=== PATIENT | male | born 1960 | race Caucasian/White ===

== ENCOUNTER 2020-10-14 21:44 | Emergency (ER) | payer OTHER, SELFPAY ==
[2020-10-14] VITALS (15 sets, daily range): BP systolic 118–144; BP diastolic 78–85; PULSE 64–92; RESP 10–23; TEMP 36.4; O2SAT 95–100
--- NOTE | ~2020-10-14 | CT_ITS ---
EXAMINATION: CT pelvis w con DATE: 10/14/2020 23:09 INDICATION: Fall. Right buttock pain. Evaluate for hematoma. TECHNIQUE: Computed tomography (CT) of the pelvis was performed without intravenous contrast. Automat ed exposure control and iterative reconstruction technique were employed. Exam dose: 496.74 mGy-cm t otal exam DLP. COMPARISON: None FINDINGS: 1.5 cm exophytic lower pole right renal cyst. Normal appendix. Diverticulosis of the left colon; no CT evidence of diverticulitis. Normal caliber of the distal abdominal aorta. No intraperitoneal or retroperitoneal or lower abdomina l or pelvic mass lesion or adenopathy or ascites. There is extensive soft tissue stranding within the subcutaneous adipose tissues of the right flank, lower back and right buttock area, consistent with history of probable hematoma. No pelvic fracture or bone destruction. There is severe degenerative disc disease at L3-4, moderate degenerative disc disease at L4-5 and L5- S1. There is associated 5.7 mm retrolisthesis at L3-4. IMPRESSION: Subcutaneous fat stranding in the right flank, lower back and buttock area, likely due t o hematoma No pelvic fracture 1.5 cm right renal cyst Diverticulosis of left colon Reviewed, dictated and finalized at [facility] Reviewed, dictated and finalized at [facility] IMPRESSION: Subcutaneous fat stranding in the right flank, lower back and butt ock area, likely due to hematoma No pelvic fracture 1.5 cm right renal cyst Diverticulosis of left colon
[2020-10-14 21:52] LABS: Glucose Point of Care 146 (65-105)
--- NOTE | 2020-10-14 22:02 | PC.NURSE ---
patient here after fall. brought to ED by EMS. see initial notes. 2nd SL inserted and labs drawn. 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 EKG done due to cardiac hx. patient on brillinta and ASA at home. has moderate sized bruise and hematoma to right flank where he hit the brick fireplace. EMS and patient both deny known head injury or LOC. no other wounds seen. no deformities noted.
--- NOTE | 2020-10-14 22:02 | ECG_ITS ---
Measurements Intervals [place] Rate: 75 P: 68 [place]: 151 QRS: 53 QRSD: 101 T: 75 QT: 379 QTc: 424 Interpretive Statements SINUS RHYTHM POSSIBLE LEFT ATRIAL ENLARGEMENT BORDERLINE ECG Electronically Signed On 10-15-2020 6:28:54 EXCEL DEVELOPER by Fran Morales D.O.
--- NOTE | 2020-10-14 22:22 | ED.GENADULT ---
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 He states that he felt he was almost going to pass out, but he did not actually pass out. He also fell 3 hours ago and hit his right back/buttock on the mantle of a fireplace. He denies hitting his head. He was able to get up and walk after the fall. He then went to dinner and got light headed afterwards. Related Data Home Medications Medication Instructions Recorded Confirmed carvedilol 6.25 mg BID 10/14/20 lisinopril 30 mg DAILY 10/14/20 rosuvastatin 10 mg HS 10/14/20 ticagrelor [Brilinta] 90 mg DAILY 10/14/20 Allergies Allergy/AdvReac Type Severity Reaction Status Date / Time bee pollen Allergy Anaphylaxis Verified 10/14/20 23:30 Review of Systems Constitutional: Constitutional: Reports as per HPI, Denies chills, Reports excessive sweating, Denies fever(s), Denies headache(s) and Denies weakness Eyes: Eyes: Denies blurry vision ENT: Denies headache(s) and Denies neck pain Cardiovascular: Cardiovascular: Denies chest pain and Denies dyspnea Respiratory: Respiratory: Denies cough and Denies dyspnea Gastrointestinal: Gastrointestinal: Denies abdominal pain, Denies diarrhea, Denies nausea and Denies vomiting Genitourinary: Genitourinary: Denies hematuria and Denies dysuria Musculoskeletal: Musculoskeletal: Reports back pain and Denies neck pain Neurologic: Reports dizziness, Denies headache(s) and Denies weakness [facility] Family History Family History Father Hypertension Social History Social History Smoking status: Never smoker Second hand tobacco smoke exposure: No Alcohol intake: current Exam Const: General: no acute distress and well developed Orientation/consciousness: oriented to person, oriented to place, oriented to time and patient oriented x3 HENMT: Head: normocephalic Ears: external ears normal General nose exam: Normal external nose present Eyes: General: appearance normal, both eyes and all related structures Conjunctivae: conjunctivae normal Neck: Neck: normal visual inspection and full ROM Chest: Chest palpation & inspection: normal inspection of the chest and no tenderness Resp: Effort & Inspection: normal respiratory effort Auscultation: clear to auscultation bilaterally Cardio: Rate: regular rate Rhythm: regular rhythm GI: GI Palp: No abdominal tenderness and Yes Soft to palpation Skin: General skin exam: normal color and turgor normal Trauma: other (bruise right back) Neuro: General: oriented to person, oriented to place, oriented to time and patient oriented x3 Cognition (Neuro): normal cognition Extrem: General: normal to inspection, full ROM and no pedal edema Psych: Appearance: grossly normal Mental Status: mental status grossly normal Affect: normal affect Course Vital Signs Vital signs: Vital Signs Pulse Rate 72 10/14/20 21:46 Respiratory Rate 19 10/14/20 21:46 Pulse Oximetry 100 10/14/20 21:46 Temperature 36.4 C 10/14/20 21:57 Pulse Rate 64 10/14/20 23:32 Respiratory Rate 10 L 10/14/20 23:32 Blood Pressure 144/85 H 10/14/20 23:11 Pulse Oximetry 95 10/14/20 23:32 Medical Decision Making Vital Signs Vital Signs: Vital Signs Pulse Rate 72 10/14/20 21:46 Respiratory Rate 19 10/14/20 21:46 Pulse Oximetry 100 10/14/20 21:46 Temperature 36.4 C 10/14/20 21:57 Pulse Rate 64 10/14/20 23:32 Respiratory Rate 10 L 10/14/20 23:32 Blood Pressure 144/85 H 10/14/20 23:11 Pulse Oximetry 95 10/14/20 23:32 Lab Data Result diagrams: 10/14/20 22:15 10/14/20 22:15 Labs: Lab Results 10/14/20 10/14/2009/20
[2020-10-14 22:25] LABS: Basophils Percent Auto 0.2 % (0.2-1.2); Eosinophils Absolute Auto 0.1 K/mm3 (0-0.3); Eosinophils Percent Auto 1.7 % (0-4.4); Hematocrit 42.7 % (42.0-52.0); Hemoglobin 14.8 g/dL (14.0-18.0); Lymphocytes Absolute Auto 1.52 K/mm3 (0.9-3.2); Lymphocytes Percent Auto 25.1 % (18.3-44.2); Mean Corpuscular HGB Conc 34.7 g/dl (32-36); Mean Corpuscular Hemoglobin 32.2 pg (26-34); Mean Corpuscular Volume 92.8 fl (80-100); Mean Platelet Volume 11.3 fl (7.4-10.4); Monocytes Absolute Auto 0.5 K/mm3 (0.1-0.6); Monocytes Percent Auto 8.4 % (2.6-8.5); Neutrophils Absolute Auto 3.9 K/mm3 (1.3-6.7); Neutrophils Percent Auto 64.6 % (45.5-73.1); Platelet Count Result 159 k/mm3 (150-375); Red Cell Distribution Width 11.5 % (11.5-14.5); White Blood Count 6.1 K/mm3 (4.5-10.0)
--- NOTE | 2020-10-14 22:25 | PC.NURSE ---
patient's here. updated on current treatment plan.
[2020-10-14 22:35] LABS: Alanine Aminotransferase 35 U/L (4-50); Albumin Level 4.3 g/dL (3.5-5.1); Alkaline Phosphatase 46 U/L (38-126); Anion Gap 9 mmol/L (8-16); Aspartate Amino Transferase 36 U/L (17-59); Bilirubin,Total 0.7 mg/dL (0.2-1.3); Blood Urea Nitrogen 15 mg/dL (9-20); Calcium 8.9 mg/dL (8.4-10.2); Carbon Dioxide 27 mmol/L (22-30); Chloride 100 mmol/L (98-107); Estimated CRCL calculation 86 ml/min; Estimated Glomerular Filt Rate > 60; Glucose 132 mg/dL (75-110); Potassium 3.6 mmol/L (3.4-5.0); Sodium 136 mmol/L (137-145)
--- NOTE | 2020-10-14 22:48 | PC.NURSE ---
patient with call light on. wants pain med. provider aware. orders placed.
[2020-10-14 22:51] LABS: Add Urine Microscopic? YES; Appearance Urine Clear (Clear); Bilirubin Urine Negative (Negative); Blood Urine Negative (Negative); Color Urine Yellow (Yellow); Glucose Urine UA Negative (Negative); Ketones Urine Trace mg/dL (Negative); Leukocyte Esterase Ur Negative LEU/UL (Negative); Mucus Urine Heavy /lpf; Nitrate Urine Negative (Negative); Protein Urine 1+ mg/dL (Negative); RBC Urine 0-2 /hpf (0-2); Specific Grav Ur 1.029 (1.001-1.035); Squamous Epithelial Cell Urine Rare /hpf (Few); WBC Urine 0-3 /hpf
[2020-10-14] MEDS: MORPHINE SULFATE (*CRX) 4 MG/ML INJ IV PUSH (22:53)
[2020-10-14] MEDS: ONDANSETRON INJ 4 MG/2 ML VIAL IV PUSH (22:53)
--- NOTE | 2020-10-14 22:53 | PC.NURSE ---
patient medicated as ordered. taken to CT via data reduction technician and stretcher.
--- NOTE | 2020-10-14 23:20 | PC.NURSE ---
patient back from CT. on night monitor. ice bag to right flank. waiting for CT results and disposition. in room.
== END 2020-10-14 23:53 | disposition home or self-care (01) ==
PROVIDERS: Emergency Provider Emergency Medicine; PCP Family Medicine
DX: R42 Dizziness and giddiness (principal); S30.0XXA Contusion of lower back and pelvis, initial encounter; W01.198A Fall on same level from slipping, tripping and stumbling with subsequent striking against other object, initial encounter; R94.31 Abnormal electrocardiogram [ECG] [EKG]
CPT/HCPCS: 36415; 72193; 80053; 81001; 85025; 93005; 96374; 96375; 99284; J2270; J2405; Q9967

== ENCOUNTER 2020-12-02 10:25 | Outpatient (CLI) | payer OTHER, SELFPAY | END 2020-12-02 10:26 | disposition home or self-care (01) | LOC: ANHCOVIDVC 10:26 | PROVIDERS: PCP Family Medicine | DX: Z23 Encounter for immunization (principal) | CPT/HCPCS: 0001A; 91300 ==

== ENCOUNTER 2020-12-23 10:35 | Outpatient (CLI) | payer OTHER, SELFPAY | END 2020-12-23 10:36 | disposition home or self-care (01) | LOC: ANHCOVIDVC 10:35 | PROVIDERS: PCP Family Medicine | DX: Z23 Encounter for immunization (principal) | CPT/HCPCS: 0002A; 91300 ==

== ENCOUNTER 2023-10-06 20:40 | Emergency (ER) | payer BC, SELFPAY ==
--- NOTE | 2023-10-06 20:37 | ECG_ITS ---
Measurements Intervals [place] Rate: 65 P: 58 [place]: 160 QRS: 31 QRSD: 98 T: 71 QT: 398 QTc: 414 Interpretive Statements SINUS RHYTHM RSR' IN V1 OR V2, PROBABLY NORMAL VARIANT DELAYED PRECORDIAL R/S TRANSITION BORDERLINE ECG COMPARED TO ECG 10/14/2020 22:12:19 NO SIGNIFICANT CHANGES Electronically Signed On 10-08-2023 7:58:13 ASSOCIATE PROFESSOR OF [employer]RARY [employer]IA by Fran Morales D.O.
[2023-10-06 20:38] VITALS: BP 128/76; PULSE 70; RESP 18; TEMP 36.3; O2SAT 98
--- NOTE | 2023-10-06 21:35 | ED.DIZZY ---
HPI - Dizziness General Chief Complaint: Dizziness Stated Complaint: DIZZY and nausea Time Seen by Provider: 10/06/23 21:19 Source: patient and family Limitations: no limitations History of Present Illness HPI Narrative: Patient is a 63-year-old male presents to the emergency department accompanied by his for dizziness. Patient notes around 7 or 730 he was reading the newspaper and started to feel slightly dizzy and then when he laid back he got extremely dizzy. Patient notes that when he is resting goes away but with these certain movements it seems to come right back on the patient denies history this the past. Patient denies recent injuries, recent illness, chest pain, difficulty breathing, numbness, weakness, paresthesias, vision changes, difficulty swallowing, dysphonia, confusion, Ear pain, hearing changes, nasal congestion. Patient notes that he has been in his normal state health preceding this dizziness. Patient denies any dizziness currently well arrest but fears moving as this is what has been precipitating it. Related Data Home Medications Medication Instructions Recorded Confirmed carvedilol 6.25 mg tablet 6.25 mg BID 10/14/20 02/22/23 lisinopril 30 mg tablet 30 mg DAILY 10/14/20 02/22/23 aspirin 81 mg tablet,delayed 81 mg PO DAILY 08/04/21 02/22/23 release (Adult Low Dose Aspirin) dutasteride 0.5 mg capsule 0.5 mg PO DAILY 02/22/23 02/22/23 Allergies Allergy/AdvReac Type Severity Reaction Status Date / Time bee pollen Allergy Anaphylaxis Verified 10/06/23 20:38 Review of Systems Review of Systems: A 10 system review of systems was completed on the patient and is negative except for what is stated in the HPI. Nursing and ancillary documentation was reviewed. [facility] Past Medical History Medical History CAD in [place] artery CHF (congestive heart failure) Chronic back pain Dyslipidemia, goal LDL below 100 Environmental allergies Essential (primary) hypertension Prediabetes Vitamin D deficiency Surgical History Surgical History History of carpal tunnel release 2005 - b/l History of coronary artery stent placement 2016 Family History Family History Father Hypertension Renal failure Mother Heart disease Memory change Social History Social History Smoking status: Never smoker Second hand tobacco smoke exposure: No Alcohol intake: current Substance use: never Substance use type: does not use Living arrangements: with family Additional living arrangements comments: and son Occupation/Education: occupation Gender identity (if verbalized by the patient): Male Sexual Orientation (if Verbalized by the Patient): Straight or Heterosexual Comments At time of signature, I have reviewed and agree with nursing past medical, surgical, social and family history unless otherwise noted. Please see the nursing chart for further information. There is no relevant family history pertinent to the presenting complaint. Exam Narrative: CONST: No acute distress. Well nourished. HENMT: Head is normocephalic and atraumatic. Moist mucous membranes. No posterior oropharynx erythema. Bilateral tympanic membranes are normal. No middle ear effusion. Ear canals bilaterally are normal. EYES: No conjunctival icterus, injection, or pallor. PERRL. NECK: No meningeal signs. No carotid bruits. RESP: Able to speak in full sentences. Normal respiratory effort. CTAB. CARDIO: Regular rate. Regular rhythm. 2+ DP and radial pulses bilaterally. GI: Nondistended. No tenderness to palpation. Soft. : No CVA tenderness to palpation. SKIN: No rashes or lesions noted on exposed skin. NEURO: Oriented x3. Moves all extremities. bilateral upper extremity and
[2023-10-06] MEDS: METOCLOPRAMIDE HCL INJ 10 MG/2 ML VIAL IV PUSH (22:12)
[2023-10-06] MEDS: diphenhydrAMINE HCl INJ 50 MG/ML VIAL IV PUSH (22:12)
[2023-10-06 22:16] VITALS: BP 133/79; PULSE 74; RESP 18; O2SAT 98
[2023-10-06 23:37] VITALS: BP 128/80; PULSE 74; RESP 19; O2SAT 97
[2023-10-06] MEDS: SCOPOLAMINE 1 MG PATCH 1 PATCH TRANSDERM (23:54)
[2023-10-07 00:25] VITALS: BP 121/76; PULSE 80; RESP 14; O2SAT 96
== END 2023-10-07 00:25 | disposition home or self-care (01) ==
PROVIDERS: Emergency Provider Student in an Organized Health Care Education/Training Program; PCP Family Medicine
DX: H81.10 Benign paroxysmal vertigo, unspecified ear (principal); I25.10 Atherosclerotic heart disease of native coronary artery without angina pectoris; I50.9 Heart failure, unspecified; I11.0 Hypertensive heart disease with heart failure; E78.5 Hyperlipidemia, unspecified; E55.9 Vitamin D deficiency, unspecified; R73.03 Prediabetes; Z95.5 Presence of coronary angioplasty implant and graft; Z79.82 Long term (current) use of aspirin; R94.31 Abnormal electrocardiogram [ECG] [EKG]
CPT/HCPCS: 93005; 96374; 96375; 99284; A9270; J1200; J2765